=== PATIENT | male | born 1995 | race Caucasian/White ===

== ENCOUNTER → 2024-07-27 16:19 | Outpatient (REF) | payer OTHER, SELFPAY | LOC: RAD 16:19 | PROVIDERS: ATTENDING PHYSICIAN Nurse Practitioner Family; FAMILY PHYSICIAN Family Medicine | DX: R10.33 Periumbilical pain (principal) | CPT/HCPCS: 74019 ==

== ENCOUNTER → 2024-08-18 14:14 | Outpatient (REF) | payer OTHER, SELFPAY | LOC: RAD 14:14 | PROVIDERS: ATTENDING PHYSICIAN Nurse Practitioner Family | DX: R10.33 Periumbilical pain (principal) | CPT/HCPCS: 76700 ==